=== PATIENT | female | born 1980 ===

== ENCOUNTER → 2023-12-13 06:28 | Day surgery (SDC) | payer BC, SELFPAY | LOC: GI 06:28 | PROVIDERS: ATTENDING PHYSICIAN Internal Medicine | DX: K29.50 Unspecified chronic gastritis without bleeding (principal); K22.81 Esophageal polyp; K44.9 Diaphragmatic hernia without obstruction or gangrene; K31.89 Other diseases of stomach and duodenum; R93.3 Abnormal findings on diagnostic imaging of other parts of digestive tract; R14.0 Abdominal distension (gaseous) | CPT/HCPCS: 43239; 88305; 88342 ==

== ENCOUNTER 2024-11-26 06:29 | Day surgery (SDC) | payer BC, SELFPAY | END 2024-11-26 15:22 | disposition home or self-care (01) | LOC: GI 06:29 | PROVIDERS: ATTENDING PHYSICIAN Internal Medicine | DX: Z12.11 Encounter for screening for malignant neoplasm of colon (principal); K59.09 Other constipation; K64.9 Unspecified hemorrhoids; K63.89 Other specified diseases of intestine; D12.8 Benign neoplasm of rectum; D12.3 Benign neoplasm of transverse colon; D12.2 Benign neoplasm of ascending colon | CPT/HCPCS: 45385; 45380; 88305 ==

== ENCOUNTER 2025-02-12 06:07 | Day surgery (SDC) | payer BC, SELFPAY ==
[2025-02-12 07:15] VITALS: BMI 21.7
[2025-02-12 07:20] VITALS: BP 140/82; BMI 21.7
[2025-02-12 09:55] VITALS: BP 105/76
[2025-02-12 10:00] VITALS: BP 112/85
== END 2025-02-12 10:38 | disposition home or self-care (01) ==
LOC: GI 06:07
PROVIDERS: ATTENDING PHYSICIAN Internal Medicine Gastroenterology
DX: K64.0 First degree hemorrhoids (principal); K63.5 Polyp of colon; D12.2 Benign neoplasm of ascending colon; D12.0 Benign neoplasm of cecum
CPT/HCPCS: 45390; 45385; 88305

== ENCOUNTER → 2025-06-23 07:58 | Outpatient (REF) | payer BC, SELFPAY | LOC: RCS 07:58 | PROVIDERS: ATTENDING PHYSICIAN Internal Medicine Cardiovascular Disease; FAMILY PHYSICIAN Family Medicine | DX: I63.9 Cerebral infarction, unspecified (principal); I38 Endocarditis, valve unspecified; Z82.49 Family history of ischemic heart disease and other diseases of the circulatory system | CPT/HCPCS: 93306 ==

== ENCOUNTER 2025-06-27 12:48 | Emergency (ER) | payer BC, SELFPAY ==
[2025-06-27 12:49] VITALS: BP 118/82
--- NOTE | 2025-06-27 14:48 | ED.GENMED ---
History of Present Illness
General
Chief Complaint: DVT/Possible Blood Clot
Source: patient
Time Seen by Provider: 06/27/25 13:34
History of Present Illness
History of Present Illness:
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
more prominent vein which is what prompted her to come to the ER with concern for possible DVT. Patient significant other has a history of DVT but patient herself does not. No smoking history, no recent travel, currently not on any oral
contraceptive or estrogen replacement, no recent surgeries. Family history noncontributory.
Past History
Past History
ED Past Medical History: CVA
ED Past Surgical History: Other
Social History
Tobacco: Non-smoker
Alcohol: Occasional
Drug: None
Personal:
Living: with family
Review of Systems
Review of Systems
All Other Systems: ROS reviewed and negative except as documented in HPI and ROS
Phy Exam
Physical Exam
Physical Exam:
GENERAL: Alert , in no apparent distress
EYE: conjunctiva clear
Head: Normocephalic atraumatic
NECK: Supple,
ENT: mmm.
LUNGS: no acute respiratory distress
NEUROLOGICAL: Alert and oriented
SKIN: Warm and dry, skin intact.
MUSCULOSKELETAL: well perfused. Easily palpable pedal and tibial pulse. Cap refill less than 2 seconds. No observable edema and no focal areas of tenderness
PSYCH: Normal and appropriate interaction.
Scores
Heart Failure Risk
Heart Failure Risk Score: Not Applicable
Heart Score for Chest Pain Patients
STEMI patient?: Not applicable
Withdrawal Assessment of Alcohol
Withdrawal Assessment Completed?: Not applicable
Course
Orders/Labs/Results
Orders:
Orders
06/27/25 12:52
US Periph Venous LOWER Ext LT Urgent
Comment:
Reason For Exam: calf pain, remote h/o blood clots
Vital Signs
Initial and Last Documented VS:
Initial Vital Signs
Temp Pulse Resp BP Pulse Ox
98.3 F 76 16 118/82 100
06/27/25 12:49 06/27/25 12:49 06/27/25 12:49 06/27/25 12:49 06/27/25 12:49
Last Documented Vital Signs
Temp Pulse Resp BP Pulse Ox
98.3 F 76 16 118/82 100
06/27/25 12:49 06/27/25 12:49 06/27/25 12:49 06/27/25 12:49 06/27/25 14:50
MDM/Problems Addressed
Differential Diagnosis Includes:
DVT
Phlebitis
Muscle strain
PAD/PVD
MDM/Problems Addressed:
36-year-old female presenting to the emergency department for evaluation with concern for possible DVT. Exam reassuring. Will check ultrasound to rule out DVT. Disposition pending.
*Radiology
Radiology exam reviewed: radiology read reviewed
*Pulse Oximetry
SaO2: 100
Oxygen Mode of Delivery: Room air
Patient hypoxic: no
*Critical Care Note
Total Time (30-74mins, 75-104mins- exclusive of procedures): Not Applicable
Patient Management
Escalation/DeEscalation of care consider admission/obs:
US negative for DVT. Stable for d/c home and aware of return precautions to the ER
ED Attending Note
-
Portions of this chart may have been created with voice recognition software.� Occasional wrong word or��sound alike� substitutions may have occurred due to the inherent limitations of voice recognition software.
Discharge Plan
Departure
Patient Disposition: Home (Routine Discharge)
Date of Disposition: 06/27/25
Time of Disposition: 16:22
Patient with high blood pressure during this ER visit?: No
Discharge Problem:
Pain of left calf
Instructions: Muscle strain - ED (DC)
Prescriptions:
No Action
valacyclovir [Valtrex] 500 mg Tablet
500 mg PO Q12H PRN (Reason: breakout)
magnesium citrate
250 mg PO DAILY
Referrals:
Ruma Mitchell MD [Family Provider, Family Practice]
Discharge Date and Time
Print Language: [id number]
== END 2025-06-27 16:45 | disposition home or self-care (01) ==
LOC: EMR 12:48
PROVIDERS: EMERGENCY PHYSICIAN Emergency Medicine; FAMILY PHYSICIAN Family Medicine
DX: M79.662 Pain in left lower leg (principal); Z86.73 Personal history of transient ischemic attack (TIA), and cerebral infarction without residual deficits; Z92.0 Personal history of contraception
CPT/HCPCS: 99284; 93971